=== PATIENT | male | born 1930 | race Caucasian/White ===

== ENCOUNTER 2019-11-10 07:44 | Outpatient (CLI) | payer MEDICARE ==
--- NOTE | 2019-11-10 08:05 | RAD ---
3 views left shoulder: 11/10/2019 COMPARISON: None HISTORY: Left shoulder pain for one week following lifting injury FINDINGS: No fracture or dislocation. No radiopaque foreign body or subcutaneous gas. 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 There is joint space narrowing involving the glenohumeral joint as well. Elevation of the humeral head noted, which may signify underlying rotator cuff pathology. IMPRESSION: Chronic findings as detailed above. No acute fracture or dislocation. Elevation of the hu meral head suggest possible underlying rotator cuff tear.
== END 2019-11-10 07:45 | disposition home or self-care (01) ==
LOC: MADRAD 07:44
PROVIDERS: ATTEND Registered Nurse
DX: M25.512 Pain in left shoulder (principal)

== ENCOUNTER 2019-12-07 17:46 | Outpatient (CLI) | payer MEDICARE ==
[2019-12-07 18:08] LABS: Anion Gap 18 mmol/L (10-20); BUN (Urea Nitrogen) 23 mg/dL (8.4-25.7); Calc. Creatinine Clearance 0 mL/min (70-130); Calcium 7.6 mg/dL (7.8-10.44); Carbon Dioxide 28 mmol/L (23-31); Chloride 94 mmol/L (98-107); Estimated GFR-MDRD 55; Glucose 95 mg/dL (83-110); Sodium 137 mmol/L (136-145)
[2019-12-07 18:47] LABS: Potassium 2.9 mmol/L (3.5-5.1)
== END 2019-12-07 17:47 | disposition home or self-care (01) ==
LOC: MADLAB 17:46
PROVIDERS: ATTEND Internal Medicine Cardiovascular Disease
DX: I50.9 Heart failure, unspecified (principal)
CPT/HCPCS: 80048